=== PATIENT | female | born 1955 | race Caucasian/White ===

== ENCOUNTER 2016-07-26 10:15 | Emergency (ER) | payer OTHER ==
[2016-07-26] MEDS ORDERED: DUONEB INH ONE (12:23)
[2016-07-26] MEDS ORDERED: METHYLPRED SOD SUCC 125 MG/2 ML VIAL ONE (12:49)
== END 2016-07-26 13:33 | disposition home or self-care (01) ==
LOC: ER 10:15
DX: R05 Cough (principal); J41.1 Mucopurulent chronic bronchitis; M94.0 Chondrocostal junction syndrome [Tietze]; Z79.899 Other long term (current) drug therapy
CPT/HCPCS: 71020; 94640; 96372